=== PATIENT | male | born 1990 | race Caucasian/White ===

== ENCOUNTER → 2021-10-26 | Day surgery (SDC) | payer OTHER ==
[~2021-10-26] MED LIST: GABAPENTIN300 MG PO; HYDROCODON-ACE1 EAC2 PO; TRAMADOL HCL50 MG PO
[2021-10-26 06:18] LABS: RED BLOOD COUNT 5.19 M/UL (4.20-5.50); WHITE BLOOD COUNT 9.2 K/UL (4.5-11.0)
[2021-10-26 06:41] LABS: BUN/CREATININE RATIO 14 (0-10)
== END | disposition home or self-care (01) ==
LOC: OR 05:30
PROVIDERS: Anesthesiology Pain Medicine
DX: M96.1 Postlaminectomy syndrome, not elsewhere classified (principal); M51.16 Intervertebral disc disorders with radiculopathy, lumbar region; M46.86 Other specified inflammatory spondylopathies, lumbar region; Z20.822 Contact with and (suspected) exposure to COVID-19
CPT/HCPCS: 72110; 76000; 80048; 81001; 85025; 87086; 93005; C1778; C1787; C1820; J0690; J2704; J7030; J7120